=== PATIENT | male | born 1990 | race American Indian/Alaskan Native ===

== ENCOUNTER 2016-11-24 10:27 | Day surgery (SDC) | payer MEDICAID ==
[2016-11-24] MEDS ORDERED: NACL 0.9% 1000 ML 1,000 ML IV SCH (12:00)
[2016-11-24] MEDS ORDERED: DIPRIVAN 10 MG/ML IV ONE ×2 (12:12)
[2016-11-24] MEDS ORDERED: WATER FOR IRRIG STERILE IR ONE ×2 (12:16→13:06)
--- NOTE | 2016-11-24 12:20 | Anesthesia Day of Surgery ---
Anesthesia Day of Surgery - Day of Surgery Patient Examined: Yes Patient H&P Reviewed: Yes Patient is NPO: Yes
--- NOTE | 2016-11-24 12:20 | Anesthesia Consultation ---
Anesthesia Consult and Med Hx Date of service: 11/24/16 - Airway Anesthetic Teeth Evaluation: Good ROM Head & Neck: Adequate Mental/Hyoid Distance: Adequate Mallampati Class: Class II Intubation Access Assessment: Probably Good - Pulmonary Exam CTA: Yes - Cardiac Exam Cardiac Exam: RRR - Pre-Operative Health Status ASA Pre-Surgery Classification: ASA2 Proposed Anesthetic Plan: MAC - Pulmonary Hx Smoking: No Hx Asthma: Yes COPD: No Hx Sleep Apnea: No - Cardiovascular System Hx Hypertension: No Hx Angina: No - Central Nervous System Hx Neuromuscular Disorder: No Hx Psychiatric Problems: Yes (schizophrenia) - Gastrointestinal Hx Gastroesophageal Reflux Disease: Yes (takes meds) - Endocrine Hx Renal Disease: No Hx Insulin Dependent Diabetes: No Hx Thyroid Disease: No - Hematic Hx Anemia: No - Other Systems Hx Alcohol Use: No Hx Substance Use: No Hx Cancer: No
--- NOTE | 2016-11-24 13:14 | Operative Report ---
Operative Report Operative Report: Date of procedure: 11/24/2016 Procedure: Colonoscopy Attending physician: Abe Bustamante MD [employer]anning Solution Maker: Abe Bustamante MD Indication: A 26-year-old male who presented with history of recurrent rectal bleeding and abdominal pain. Colonoscopy is done to assess patient so that treatment may be directed based on the findings. First concern is to rule out underlying Crohn's disease. Consent: Informed consent was obtained after advising the patient and family regarding nature of this procedure, its indications, potential benefits as well as possible complications including but not limited to bleeding perforation and adverse reaction to medication, infection as well as other cardiopulmonary complications. An informed written and verbal consent was then obtained after due opportunity was provided for questions and answers. Monitoring: Patient was monitored continuously with pulse oximetry and electrocardiographic recordings as well as blood pressure recordings. Vital signs remained stable throughout this procedure with no untoward events. Preoperative assessment: Patient was assessed immediately prior to this procedure for capacity to tolerate monitored anesthesia care and moderate sedation as well as general anesthesia. Patient's ASA classification is 1, Mallampati class is 2, Hyomental distance is 3. Instrument: [place] videocolonoscope Medications: Propofol, given intravenously in divided doses. For details please refer to anesthesia records. Description of procedure: Patient was placed in the left lateral decubitus position after achieving sedation, a digital rectal examination was performed following which the colonoscope was introduced into the anal verge and advanced to the cecum which was identified by the cecal valve, the appendiceal orifice, as well as by the cecal strap and direct transillumination. The colonoscope was subsequently withdrawn with careful inspection of all mucosal surfaces. Patient tolerated this procedure well and was subsequently taken to the recovery room. The following findings were noted. Findings: The entirety of the colon was normal. On the retroflex view at anal verge patient had internal hemorrhoids. No anal fissure, or other abnormalities were seen. Impression: Internal hemorrhoids otherwise normal colonoscopy. Plan: High-fiber diet As needed stool softeners.
--- NOTE | 2016-11-24 13:15 | Discharge Summary ---
Short Stay Discharge Plan Activity: advance as tolerated Weight Bearing Status: Weight Bear as Tolerated Diet: regular
[2016-11-24 13:34] VITALS: BP 98/54
== END 2016-11-24 10:28 | disposition home or self-care (01) ==
LOC: GIO 10:27
PROVIDERS: ATTEND Internal Medicine Gastroenterology
DX: K64.8 Other hemorrhoids (principal); J45.909 Unspecified asthma, uncomplicated; K21.9 Gastro-esophageal reflux disease without esophagitis
CPT/HCPCS: 45378; J2704; J7030